=== PATIENT | male | born 1955 | race Caucasian/White ===

== ENCOUNTER 2021-07-20 10:00 | Outpatient (RCR) | payer MEDICARE, SELFPAY ==
[2021-07-10 09:10] VITALS: TEMP 36.2; BMI 34.5
--- NOTE | 2021-07-10 12:38 | HP.PCM_ITS ---
History of Present Illness Date of Service: 07/10/21 Chief Complaint: Right fifth toe ulcer History of Wound: Nathan is a pleasant 66-year-old male who presents to the wound healing center today (07/10/2021) for an initial evaluation of a right fifth toe ulcer. He reports a past medical history significant for insulin- dependent type 2 diabetes mellitus, diabetic polyneuropathy of the bilateral feet, hyperlipidemia, and tobacco use (chewing tobacco; non-smoker). He states that approximately 2.5 weeks ago he was walking in a new pair of shoes; he later developed a blister of the right fifth toe. He was applying triple antibiotic ointment to the area for a few days before he was seen by his primary care provider. At the time of his evaluation with his primary care provider, he reports redness and swelling of the right foot that extended to the ankle. His primary care provider placed him on Augmentin 875 mg / 125 mg 3 times daily x20 days and doxycycline 100 mg twice daily x20 days. He was also given mupirocin ointment to use to the right fifth toe ulcer daily and instruct ed to wrap the toe with gauze. He has since had a significant reduction in the redness and swelling of his right foot. He was later seen by his general internist and physician leader (Dr. Israel in [place], [place]). His right fifth toe ulcer was debrided. No changes were made to his wound care regimen. A culture was collected by his general internist and physician leader, and no changes to antibiotics have been made. An x-ray and lab work were also completed. He reports that years ago (around 2009?2011) he was told that he had shattered several bones in his right foot. No surgery was required, and he states this was managed with wrapping/bracing the right foot. He states that his right foot typically swells more easily than his left, but only with prolonged activity/standing. The patient denies fever, chills, general malaise, or poor appetite. The patient has not had increased redness, swelling, or purulent/malodorous drainage from affected area. [facility] Medical History (Updated 07/10/21 @ 13:01 by Opal Starr NP, LABELING SPECIALIST-C) Diabetic polyneuropathy Diabetic ulcer of right fifth toe Foot fracture, right Tobacco use Type 2 diabetes mellitus Home Medications insulin lispro [Humalog KwikPen Insulin] 15 unit SUBCUT TID 07/10/21 [History Last Taken Unknown] losartan 25 mg PO DAILY 07/10/21 [History Last Taken Unknown] metformin 1,000 mg PO BID 07/10/21 [History Last Taken Unknown] rosuvastatin 10 mg PO DAILY 07/10/21 [History Last Taken Unknown] Allergy/AdvReac Type Severity Reaction Status Date / Time acetaminophen [From NyQuil] Allergy Mild Hives Verified 07/10/21 09:39 dextromethorphan Allergy Mild Hives Verified 07/10/21 09:39 [From NyQuil] doxylamine [From NyQuil] Allergy Mild Hives Verified 07/10/21 09:39 pseudoephedrine [From NyQuil] Allergy Mild Hives Verified 07/10/21 09:39 Social History Smoking Status: Never smoker ROS Constitutional Constitutional: Denies chills, fever(s) or night sweats Eyes Eyes: Denies change in vision or double vision ENT HEENT: Denies lip swelling or tongue swelling Cardiovascular Cardiovascular: Denies chest pain, leg edema or palpitations Respiratory/Chest Respiratory/Chest: Denies cough, shortness of breath at rest, shortness of breath with exertion or wheezing Gastrointestinal Gastrointestinal: Denies diarrhea, nausea or vomiting Genitourinary Genitourinary: Denies dysuria or hematuria Musculoskeletal Musculoskeletal: Reports numbness and tingling; Denies abnormal gait, extremity pain or muscle weakness Integumentary Integumentary: Reports wounds; Denies rash Neurologic Neurologic: Reports sensory deficit; Denies abnormal gait, abnormal speech or focal weakness Endocrine Endocrinology: Denies cold intolerance, heat intolerance, polydipsia or polyuria Hematologic/Lymphatic Hematologic/Lymphatic: Denies easy bleeding or easy bruising Vital Signs Vital Signs Vital Signs: 07/10/21 09:10 Temperature 97.2 F L Temperature Source Temporal Weight Weight: 227 lb 7.189 oz Body Mass Index (BMI) 34.5 Physical Exam Const alert, no apparent distress and healthy appearing General Appearance: cooperative, comfortable and well kempt Nutritional Appearance: obese HEENT Head and Scalp: normocephalic and atraumatic Eyes EOMs intact bilaterally Neck supple and no JVD Resp normal respiratory effort, normal air movement and no use of accessory muscles Auscultation: clear to auscultation bilaterally; Negative for crackles, rales, rhonchi or wheezes Cardio regular rate and regular rhythm GI normal to inspection, nondistended, normoactive bowel sounds Extremity normal capillary refill, no joint enlargement, no clubbing, cyanosis or edema and no calf tenderness General Extremity: edema right lower extremity (foot) mild Peripheral Pulses: Yes dorsalis pedis pulses present bilateral 2+ Skin Wounds: wounds noted No malodorous Wound Narrative: Ulcer of right fifth toe with subcutaneous layer and muscle exposed. Probes to bone. Tunneling present. Moderate to large amount of slough and devitalized tissue present. No purulent/malodorous drainage noted. Mild erythema of the right great toe, which does not extend to the dorsal foot. Swelling of right great toe also noted, as well as mild edema of right foot. The right fifth toe is not warm to palpation. Nontender to palpation, though the patient has decreased sensation due to polyneuropathy. Neuro moves all extremities and no focal motor deficits Sensory Exam: other Decreased sensation in the bilateral feet Motor Exam: no movement abnormalities noted Psych mental status grossly normal, cooperative and affect normal Debridement Note Debridement Note Post-Debridement Measurements and Additional Note: Post-Debridement Measurements/Treatment - Nurse 1 - General Ulcer Assessment Start: 07/10/21 09:09 Freq: Status: Active Protocol: YOGI Activity Type Activity Date Activity User E-Sign Co-Sign Detail Recorded Client Recorded Date Recorded By Document 07/10/21 09:10 MEAGAN [id number] 07/10/21 09:34 MEAGAN 07/10/21 09:10 - Today's Visit Information Type of service Initial Visit Arrival Mode Ambulatory Patient Identification Verified (Name & Yes ) Height and Weight Height 5 ft 8 in Weight 227 lb 7.189 oz Weight in Pounds 227.4 lbs Body Mass Index (BMI) 34.5 BMI Classification Obese BSA - Katelynn 2.16 Vital Signs Temperature (97.8 F-99.1 F) 97.2 F L Temperature Source Temporal History Since Last Visit- (Skip if this is Patient's initial visit) Have you changed medications since your No last visit? Left Footwear Regular Shoe Right Footwear Regular Shoe Lower Extremity Assessment/ Foot Assessment/ Toe Nail Assessment Right -Claudication Assessment N/A due to Amputation -Polpliteal Pulses Palpable Yes -Popliteal Doppler Monophasic -Dorsalis Pedis Doppler Monophasic -Extremity Color Normal -Hair Growth on Legs Yes -Hair Growth on Toes Yes -Temperature of Extremity Warm -Capillary Refill Less than 3 Seconds -Dependent Rubor Yes -Blanched when Elevated Yes Communication Assessment Preferred language Bangladeshi Sales Hunter Required No Able to Read Yes Able to Write Yes Communication Tools None Right Hearing Abillity Normal Visual Assistive Devices Glasses Teaching Assessment Preferences Verbal,Written Willingness to Engage in Self Management High Activies Readiness to Engage in Self Management High Activities Anxiety Level Calm Cooperation Cooperative Perception Coherent Interest in Health Problem Asks Questions Does Patient Smoke tobacco or other Yes substances Smoking Status Never smoker Culture/Mormonism/Emr Implementation Specialist Cultural/Mormonism Needs that may affect No Treatment Plan Would you allow our hospital machine cleaner to No meet you for the purpose of spiritual/ emotional support? Emr Implementation Specialist to contact place of mosque No WC - Nurse 1 - General Ulcer Measurement Start: 07/10/21 09:09 Freq: Status: Active Protocol: Activity Type Activity Date Activity User E-Sign Co-Sign Detail Recorded Client Recorded Date Recorded By Document 07/10/21 09:10 MN [id number] 07/10/21 09:34 MEAGAN 07/10/21 09:10 Wound Center Nurse 1 #1 R 5th toe -Current Size (cm) - Length 1.6 -Current Size (cm) - Width 1.7 -Current Size (cm) - Depth 0.2 -Total Square Cm 2.72 -Date of Last Picture (Recall this 07/10/21 field) -Photo Taken Yes -Exudate Amt Medium -Exudate Type Serosanguineous -Wound Margin Distinct, Outline Attached -Necrosis Amt Medium (34-66%) -Necrotic Tissue Type Adherent Slough -Texture (Luzmaria-wound Skin Appearance) Assessed,Callus -Moisture (Luzmaria-wound Skin Appearance) No Abnormality, Assessed -Color (Luzmaria-wound Skin Appearance) No Abnormality, Assessed -Temperature (Luzmaria-wound Skin No Abnormality Appearance) (Pt Warm) -Tenderness on Palpation (Luzmaria-wound Yes Skin Appearance) -Ulcer Cleansing Rinsed/ Irrigated with Saline -Anesthetic Used 4% Lidocaine Solution Right Calf (cm) 40.5 Right Ankle (cm) 25 MARIYA - Nurse 3 - General Ulcer D/C NN Start: 07/10/21 09:09 Freq: Status: Active Protocol: Activity Type Activity Date Activity User E-Sign Co-Sign Detail Recorded Client Recorded Date Recorded By Document 07/10/21 10:46 MEAGAN [id number] 07/10/21 10:47 MEAGAN 07/10/21 10:46 Wound Care Nurse 3 #1 R 5th toe -Ulcer Cleansing Rinsed/ Irrigated with Saline -Primary Dressing Applied C Hydrogel ($) -Primary Dressing Covered/Secured with Dry Gauze, Secured with Tape Right -Lotion applied to leg before No compression wrap -Tubular Bandage Double Layer -Size of Tubigrip Used Size D -Size D ($) 2 WC - Visit Discharge Discharge Condition Stable Ambulatory Status Ambulatory Transportation Private Auto Accompanied by Medication Reconcilliation completed & No provided to patient/care provider Clinical Summary of Care Provided Yes Wound debrided: Right fifth toe ulcer Laterality: Right Wound Grade/Stage: Rizvi 2 Type of Debridement: Excisional debridement Anesthesia Used: 5% Lidocaine Gel Depth: Down to and including healthy tissue, in the subcutaneous layer, to muscle and to bone Percentage of wound debrided: 100 Instrument Used: 5mm curette Tissue Removed: Slough and devitalized tissue Severity: Necrosis of Muscle Amount of bleeding with debridement: Mild Bleeding Controlled with: Pressure Patient tolerated procedure: Patient tolerated procedure well Charges/Coding Visit Charges Office Visits / Consults: [id number] OV L4 New Procedures Integumentary [id number]: [id number] Odalys musc/fascia 20 sq cm/< Assessment/Plan Assessment/Plan (1) Diabetic ulcer of right fifth toe: CODE(S): E11.621 - Type 2 diabetes mellitus with foot ulcer; L97.519 - Non-pressure chronic ulcer of other part of right foot with unspecified severity (2) Type 2 diabetes mellitus: CODE(S): E11.9 - Type 2 diabetes mellitus without complications QUALIFIERS: Diabetes mellitus superintendent marine oil terminal insulin use: with superintendent marine oil terminal use Diabetes mellitus complication status: with skin complications Diabetes mellitus complication detail: with foot ulcer Qualified Code(s): E11.621 - Type 2 diabetes mellitus with foot ulcer; L97.509 - Non-pressure chronic ulcer of other part of unspecified foot with unspecified severity; Z79.4 - FPC (current) use of insulin (3) Diabetic polyneuropathy: CODE(S): E11.42 - Type 2 diabetes mellitus with diabetic polyneuropathy QUALIFIERS: Diabetes mellitus type: type 2 Qualified Code(s): E11.42 - Type 2 diabetes mellitus with diabetic polyneuropathy (4) Hyperlipidemia: CODE(S): E78.5 - Hyperlipidemia, unspecified QUALIFIERS: Hyperlipidemia type: unspecified Qualified Code(s): E78.5 - Hyperlipidemia, unspecified (5) Tobacco use: CODE(S): Z72.0 - Tobacco use PLAN: Debridement performed today in clinic as annotated above. Aquacel Ag applied. Prescription for Santyl called to patient's pharmacy by disease case manager, Juan Agrawal RN. At home wound-care instructions: Begin Santyl dressing changes daily, applying a nickel thick layer to the ulcer of the right fifth toe. Change dressing once daily or more frequently as needed due to contamination. Wash wounds daily with antibacterial soap and water, rinse and dry thoroughly before each dressing change. Compression: Double Tubigrip's applied for compression to right lower extremity. Patient was instructed to wear these daily. May remove at bedtime. Reapply compression prior to getting out of bed in the morning. Off-loading: The patient was instructed to avoid pressure and friction on the affected areas. He has shoes with a cut out along the lateral edge to avoid pressure on the right fifth toe. Avoid prolonged standing and/or dangling of legs. When seated, feet should be elevated at chest level. Frequent ambulation is encouraged. When driving, perform walking breaks at least every 30 minutes. Diet: Patient encouraged to increase protein intake while taking caution to avoi d high carbohydrate and/or sugar intake. Tobacco: The risks of tobacco use and benefits of cessation were discussed with the patient today. The patient is encouraged to quit using tobacco. If cessation aids are desired, the patient should contact their primary care provider to discuss appropriate options. Labs/cultures/imaging: Cultures ordered and collected today. In the meantime, continue antibiotics as prescribed. If additional/new antibiotics are required based on culture results, patient will be contacted. Venous and arterial studies ordered today. X-ray results and lab results will be requested for review. An MRI may be considered based on clinical evaluation next week. Follow-up: Return to clinic in 1 week for re-evaluation. Return sooner or report to the emergency room should symptoms worsen, or new symptoms arise. Note: [employer] speech recognition electrical systems drafter software was used to create portions of this document. Sound-alike and misspelled words, as well as other tr anscription errors may be contained in the documentation.
[2021-07-17 08:46] VITALS: BP 113/74; PULSE 77; TEMP 36.2; BMI 34.5
--- NOTE | 2021-07-17 12:23 | PN.PCM_ITS ---
History of Present Illness Date of Service: 07/17/21 Chief Complaint: Right fifth toe ulcer History of Wound: Nathan is a pleasant 66-year-old male who presents to the wound healing center today (07/10/2021) for an initial evaluation of a right fifth toe ulcer. He reports a past medical history significant for insulin- dependent type 2 diabetes mellitus, diabetic polyneuropathy of the bilateral feet, hyperlipidemia, and tobacco use (chewing tobacco; non-smoker). He states that approximately 2.5 weeks ago he was walking in a new pair of shoes; he later developed a blister of the right fifth toe. He was applying triple antibiotic ointment to the area for a few days before he was seen by his primary care provider. At the time of his evaluation with his primary care provider, he reports redness and swelling of the right foot that extended to the ankle. His primary care provider placed him on Augmentin 875 mg / 125 mg 3 times daily x20 days and doxycycline 100 mg twice daily x20 days. He was also given mupirocin ointment to use to the right fifth toe ulcer daily and instruct ed to wrap the toe with gauze. He has since had a significant reduction in the redness and swelling of his right foot. He was later seen by his emergency management system director (Dr. Israel in [place], [place]). His right fifth toe ulcer was debrided. No changes were made to his wound care regimen. A culture was collected by his emergency management system director, and no changes to antibiotics have been made. An x-ray and lab work were also completed. He reports that years ago (around 2009?2011) he was told that he had shattered several bones in his right foot. No surgery was required, and he states this was managed with wrapping/bracing the right foot. He states that his right foot typically swells more easily than his left, but only with prolonged activity/standing. The patient denies fever, chills, general malaise, or poor appetite. The patient has not had increased redness, swelling, or purulent/malodorous drainage from affected area. Progress of Wound: The patient has been compliant with the use of Santyl over the past week. He feels his right fifth toe ulcer has improved. The patient denies fever, chills, general malaise, or poor appetite. The patient has not had increased redness, swelling, or purulent/malodorous drainage from affected area. He has finished his course of Augmentin, but is still finishing his course of doxycycline. His labs from Dr. Israel on 06/25/2021 were reviewed, as follows: CBCD: WBC 12.2 (H), hemoglobin 12.9 (L), hematocrit 39.0 (L) CRP: 9.10 Wound culture: Positive for group B Streptococcus His right foot x-ray was also reviewed which demonstrated remote trauma and superimposed diabetic/Charcot foot. No noted soft tissue swelling or concern for osteomyelitis. His wound culture from 07/10/2021 was positive for 2+ corynebacterium minutiss imum, suspected skin contaminant. Objective Data Objective Data Vital Signs: Vital Signs Temp Pulse BP 97.1 F L 77 113/74 07/17/21 08:46 07/17/21 08:46 07/17/21 08:46 Weight: 227 lb 7.189 oz Body Mass Index (BMI) 34.5 Lab / Micro Data Micro: Microbiology 07/10/21 10:10 Ulcer, Decubitus - Right Foot Gram Stain - Final 07/10/21 10:10 Ulcer, Decubitus - Right Foot Wound Culture - Final Corynebacterium minutissimum 07/10/21 10:10 Ulcer, Decubitus - Right Foot Anaerobic Culture - Final No anaerobic bacteria isolated. Charges/Coding Procedures Integumentary [id number]: [id number] Odalys musc/fascia 20 sq cm/< Physical Exam Const alert, no apparent distress and healthy appearing General Appearance: cooperative, comfortable and well kempt Nutritional Appearance: obese HEENT Head and Scalp: normocephalic and atraumatic Eyes EOMs intact bilaterally Neck supple Resp normal respiratory effort Extremity normal capillary refill and no joint enlargement General Extremity: edema right lower extremity (foot) mild Peripheral Pulses: Yes dorsalis pedis pulses present bilateral 2+ Skin Wounds: wounds noted No malodorous Wound Narrative: Ulcer of right fifth toe with subcutaneous layer and muscle exposed. Questionable probing to bone this week. Tunneling present. Moderate amount of slough and devitalized tissue present. No purulent/malodorous drainage noted. Mild erythema of the right 5th toe, which does not extend to the dorsal foot. Swelling of right 5th toe also noted, as well as mild edema of right foot. The right fifth toe is not warm to palpation. Nontender to palpation, though the patient has decreased sensation due to polyneuropathy. Neuro moves all extremities and no focal motor deficits Sensory Exam: other Decreased sensation in the bilateral feet Motor Exam: no movement abnormalities noted Psych mental status grossly normal, cooperative and affect normal Debridement Note Debridement Note Post-Debridement Measurements and Additional Note: Post-Debridement Measurements/Treatment WC - Nurse 1 - General Ulcer Assessment Start: 07/10/21 09:09 Freq: Status: Active Protocol: [email or web address] Activity Type Activity Date Activity User E-Sign Co-Sign Detail Recorded Client Recorded Date Recorded By Document 07/10/21 09:10 MD [id number] 07/10/21 09:34 AK Document 07/17/21 08:46 AK Desktop 07/17/21 08:47 AK 07/10/21 07/17/21 09:10 08:46 - Today's Visit Information Type of service Initial Visit Follow-up Visit (Physician/HAIR BLENDER ) Arrival Mode Ambulatory Ambulatory Patient Identification Verified (Name & Yes Yes ) Height and Weight Height 5 ft 8 in Weight 227 lb 7.189 oz Weight in Pounds 227.4 lbs Body Mass Index (BMI) 34.5 34.5 BMI Classification Obese Obese BSA - Katelynn 2.16 Vital Signs Temperature (97.8 F-99.1 F) 97.2 F L 97.1 F L Temperature Source Temporal Temporal Pulse Rate (60-100) 77 Pulse Location Monitor Blood Pressure (90/60-120/80) 113/74 Blood Pressure Mean (mm Hg) 87 Source Monitor Position Semi-Fowlers Blood Pressure Location Left Arm History Since Last Visit- (Skip if this is Patient's initial visit) Have you changed medications since your No No last visit? Any new allergies or adverse reactions No Had a fall/change in ADL's that may No increase risk of falls Have you been in the hospital since your No last visit? Has dressing in place as prescribed Yes Has compression in place as prescribed Yes Has offloadiing in place as prescribed N/A Experienced any changes in pain level or No management Left Footwear Regular Shoe Regular Shoe Right Footwear Regular Shoe Regular Shoe Pain Scale: 0-10 Numeric Is Patient Pain Free? Yes Lower Extremity Assessment/ Foot Assessment/ Toe Nail Assessment Right -Claudication Assessment N/A due to Amputation -Polpliteal Pulses Palpable Yes -Popliteal Doppler Monophasic -Dorsalis Pedis Doppler Monophasic -Extremity Color Normal -Hair Growth on Legs Yes -Hair Growth on Toes Yes -Temperature of Extremity Warm -Capillary Refill Less than 3 Seconds -Dependent Rubor Yes -Blanched when Elevated Yes Communication Assessment Preferred language [place] Slat Basket Maker Machine Required No Able to Read Yes Able to Write Yes Communication Tools None Right Hearing Abillity Normal Visual Assistive Devices Glasses Teaching Assessment Preferences Verbal,Written Willingness to Engage in Self Management High Activies Readiness to Engage in Self Management High Activities Anxiety Level Calm Cooperation Cooperative Perception Coherent Interest in Health Problem Asks Questions Does Patient Smoke tobacco or other Yes substances Smoking Status Never smoker Culture/Rastafarian/Structural Worker Cultural/Rastafarian Needs that may affect No Treatment Plan Would you allow our hospital general distillery worker to No meet you for the purpose of spiritual/ emotional support? Structural Worker to contact place of amish No WC - Nurse 1 - General Ulcer Measurement Start: 07/10/21 09:09 Freq: Status: Active Protocol: Activity Type Activity Date Activity User E-Sign Co-Sign Detail Recorded Client Recorded Date Recorded By Document 07/10/21 09:10 AK [id number] 07/10/21 09:34 AK Document 07/17/21 08:46 AK Desktop 07/17/21 08:47 AK 07/10/21 07/17/21 09:10 08:46 Wound Center Nurse 1 #1 R 5th toe -Current Size (cm) - Length 1.6 1 -Current Size (cm) - Width 1.7 1.5 -Current Size (cm) - Depth 0.2 0.3 -Total Square Cm 2.72 1.5 -Date of Last Picture (Recall this 07/10/21 field) -Photo Taken Yes -Exudate Amt Medium Small -Exudate Type Serosanguineous Serosanguineous -Wound Margin Distinct, Distinct, Outline Outline Attached Attached -Slough/Fibrin Yes -Necrosis Amt Medium (34-66%) Large (67-100%) -Necrotic Tissue Type Adherent Slough Adherent Slough -Texture (Luzmaria-wound Skin Appearance) Assessed,Callus Assessed,Callus ,Scarring -Moisture (Luzmaria-wound Skin Appearance) No Abnormality, No Abnormality, Assessed Assessed -Color (Luzmaria-wound Skin Appearance) No Abnormality, No Abnormality, Assessed Assessed -Temperature (Luzmaria-wound Skin No Abnormality No Abnormality Appearance) (Pt Warm) (Pt Warm) -Tenderness on Palpation (Luzmaria-wound Yes No Skin Appearance) -Ulcer Cleansing Rinsed/ Rinsed/ Irrigated with Irrigated with Saline Saline -Foul Odor after Cleansing No -Anesthetic Used 4% Lidocaine 5% Lidocaine Solution Gel Right Calf (cm) 40.5 Right Ankle (cm) 25 WC - Nurse 2 - General Ulcer CM Notes Start: 07/10/21 09:09 Freq: Status: Active Protocol: Activity Type Activity Date Activity User E-Sign Co-Sign Detail Recorded Client Recorded Date Recorded By Document 07/10/21 13:21 PL [id number] 07/10/21 13:23 PL Document 07/17/21 12:20 PL [id number] 07/17/21 12:21 PL 07/10/21 07/17/21 13:21 12:20 Wound Center Nurse 2 -Time 09:50 09:18 -Correct Patient Yes Yes -Correct Side, Site, Position Yes Yes -Correct Procedure Yes Yes -Procedure Performed Yes Yes -Type of Procedure Debridement Debridement -Clinical Debridement Muscle / Fascia Subcutaneous -Tissue Removed Muscle Subcutaneous -Post Debridement (cm) - Length 1.6 1.3 -Post Debridement (cm) - Width 1.6 1.5 -Post Debridement (cm) - Depth 0.1 0.1 -Total Square (Post) (cm) 2.56 1.95 -Area of Debridement (cm) - Length 1.6 1.3 -Area of Debridement (cm) - Width 1.6 1.5 -Total Square (Area) (cm) 2.56 1.95 -Tunneling No No -Undermining/Tunneling No No -Circular Undermining No No -Wound/Ulcer Outcome Healed- Healed- Surgical Surgical Closure Closure -Foul Odor after Cleansing No No -Bioengineered Tissue No No -Bleeding Controlled with Pressure Pressure -Treatment Response Procedure Procedure Tolerated Well Tolerated Well -Debridement - Subq, 1st 20sq cm Yes -Debridement - Muscle / Fascia, 1st Yes 20sq cm WC - Nurse 3 - General Ulcer D/C NN Start: 07/10/21 09:09 Freq: Status: Active Protocol: Activity Type Activity Date Activity User E-Sign Co-Sign Detail Recorded Client Recorded Date Recorded By Document 07/10/21 10:46 AK [id number] 07/10/21 10:47 AK Document 07/17/21 09:44 KR Desktop 07/17/21 09:44 KR 07/10/21 07/17/21 10:46 09:44 Wound Care Nurse 3 #1 R 5th toe -Ulcer Cleansing Rinsed/ Irrigated with Saline -Primary Dressing Applied C Hydrogel ($) C Hydrogel ($) -Primary Dressing Covered/Secured with Dry Gauze, Dry Gauze, Secured with Secured with Tape Tape Right -Lotion applied to leg before No compression wrap -Tubular Bandage Double Layer -Size of Tubigrip Used Size D -Size D ($) 2 Pain Scale: 0-10 Numeric Is Patient Pain Free? Yes WC - Visit Discharge Discharge Condition Stable Stable Ambulatory Status Ambulatory Ambulatory Transportation Private Auto Private Auto Accompanied by Medication Reconcilliation completed & No provided to patient/care provider Clinical Summary of Care Provided Yes Wound debrided: Right fifth toe ulcer Laterality: Right Wound Grade/Stage: Rizvi 2 Type of Debridement: Excisional debridement Anesthesia Used: 5% Lidocaine Gel Depth: Down to and including healthy tissue, in the subcutaneous layer, to muscle and - (Questionable probing to bone, no bone visualized today) Percentage of wound debrided: 100 Instrument Used: 5mm curette Tissue Removed: Slough and devitalized tissue Severity: Fat Layer Exposed Amount of bleeding with debridement: Mild Bleeding Controlled with: Pressure Patient tolerated procedure: Patient tolerated procedure well Assessment/Plan Assessment/Plan (1) Diabetic ulcer of right fifth toe: CODE(S): E11.621 - Type 2 diabetes mellitus with foot ulcer; L97.519 - Non-pressure chronic ulcer of other part of right foot with unspecified severity (2) Type 2 diabetes mellitus: CODE(S): E11.9 - Type 2 diabetes mellitus without complications QUALIFIERS: Diabetes mellitus terminal operator insulin use: with mcfp use Diabetes mellitus complication status: with skin complications Diabetes mellitus complication detail: with foot ulcer Qualified Code(s): E11.621 - Type 2 diabetes mellitus with foot ulcer; L97.509 - Non-pressure chronic ulcer of other part of unspecified foot with unspecified severity; Z79.4 - terminal clerk (current) use of insulin (3) Diabetic polyneuropathy: CODE(S): E11.42 - Type 2 diabetes mellitus with diabetic polyneuropathy QUALIFIERS: Diabetes mellitus type: type 2 Qualified Code(s): E11.42 - Type 2 diabetes mellitus with diabetic polyneuropathy (4) Hyperlipidemia: CODE(S): E78.5 - Hyperlipidemia, unspecified QUALIFIERS: Hyperlipidemia type: unspecified Qualified Code(s): E78.5 - Hyperlipidemia, unspecified (5) Tobacco use: CODE(S): Z72.0 - Tobacco use PLAN: Debridement performed today in clinic as annotated above. Aquacel Ag applied. Given the duration of the wound and failure of the wound to respond to standard wound care, we will apply for advanced skin substitutes (Puraply, Nushield, Apligraf . At home wound-care instructions: Continue Santyl dressing changes daily, applying a nickel thick layer to the ulcer of the right fifth toe. Change dressing once daily or more frequently as needed due to contamination. Wash wounds daily with antibacterial soap and water, rinse and dry thoroughly before each dressing change. Do not soak/submerge the wound in a tub/pool of water. Compression: Double Tubigrip's applied for compression to right lower extremity. Patient was instructed to wear these daily. May remove at bedtime. Reapply compression prior to getting out of bed in the morning. Off-loading: The patient was instructed to avoid pressure and friction on the affected areas. He has shoes with a cut out along the lateral edge to avoid pressure on the right fifth toe. Avoid prolonged standing and/or dangling of legs. When seated, feet should be elevated at chest level. When driving, perform walking breaks at least every 30 minutes. Diet: Patient encouraged to increase protein intake while taking caution to avoid high carbohydrate and/or sugar intake. Tobacco: The risks of tobacco use and benefits of cessation were discussed with the patient today. The patient is encouraged to quit using tobacco. If cessation aids are desired, the patient should contact their primary care provider to discuss appropriate options. Labs/cultures/imaging: He has finished his course of Augmentin, but is still finishing his course of doxycycline. His labs from Dr. Israel on 06/25/2021 were reviewed, as follows: CBCD: WBC 12.2 (H), hemoglobin 12.9 (L), hematocrit 39.0 (L) CRP: 9.10 Wound culture: Positive for group B Streptococcus His right foot x-ray was also reviewed which demonstrated remote trauma and superimposed diabetic/Charcot foot. No noted soft tissue swelling or concern for osteomyelitis. His wound culture from 07/10/2021 was positive for 2+ corynebacterium minutissimum, suspected skin contaminant. No clinical concerns for infection today. Following completion of his course of doxycycline, it would be reasonable to repeat lab work to follow-up on slightly elevated white blood cell count and elevated CRP. An MRI may be considered based on wound progress. Follow-up: Return to clinic in 1 week for re-evaluation. Return sooner or report to the emergency room should symptoms worsen, or new symptoms arise. Note: [email or web address] speech recognition electrical controls technician software was used to create portions of this document. Sound-alike and misspelled words, as well as other electrical controls technician errors may be contained in the documentation.
--- NOTE | 2021-07-20 09:58 | VDLE_ITS ---
Reason For Study: NONHEALING WOUND RIGHT LEFT CFV is compressible, spontaneous, phasic, CFV is compressible, spontaneous, phasic, competent and demonstrates normal competent, and demonstrates normal augmentation. augmentation. FV is compressible, spontaneous, phasic, FV is compressible, spontaneous, phasic, competent and demonstrates normal competent and demonstrates normal augmentation. augmentation. POP V is compressible, spontaneous, phasic, POP V is compressible, spontaneous, phasic, competent and demonstrates normal competent and demonstrates normal augmentation. augmentation. T/P Trunk is compressible. T/P Trunk is compressible. PTV is compressible. PTV is compressible. RT PerV is compressible. LT PerV is compressible. SFJ is competent and measures .74 X .73 cm. LEFT GSV study is labeled RT on images. GSV above knee is INCOMPETENT for greater SFJ is competent and measures .8 X .93 cm. than 0.5 seconds. GSV above knee is INCOMPETENT for greater GSV at knee measures .48 X .51 cm. than 0.5 seconds. GSV below knee is competent. GSV at knee measures .49 X .48 cm. SSV at junction is competent and measures .33 GSV below knee is INCOMPETENT for greater X .34 cm. than 0.5 seconds. Procedure SSV at junction is competent and measures .10 This is a venous duplex using B-mode, color X .12 cm. flow and spectral Doppler. Exam performed in department. A preliminary report was called and/or faxed to [facility]. VL/Venous Duplex US - Fco Extrem Interpretation Summary Deep veins of the lower extremities are bilaterally patent and compressible seg mentally. There is no evidence of deep vein thrombosis on either side. Valvular competence appears in tact within the proximal deep venous systems bilaterally. The great saphenous veins appear bila terally patent and compressible segmentally. Sapheno-femoral junctions are bilaterally competent . The right great saphenous vein appears incompetent above the knee. The right great saphenous ve in appears competent below the knee. The left great saphenous vein appears segmentally incompetent. Small saphenous veins are patent and competent bilaterally. Ordering Physician: Opal Starr Referring Physician: DIXIE LUIS Performed By: Viviana Perez, PRINCE, RVT
--- NOTE | 2021-07-20 09:59 | ART_ITS ---
Reason For Study: NONHEALING ULCER Procedure A bilateral lower extremity continuous wave Doppler with analog waveform analysis,segmental pressures,and ankle brachial indexes without exercise. Left Segmental Pressures Left brachial= 141mmHg. Left posterior tibial artery = 167mmHg. Left dorsalis pedis artery = 177mmHg. Left digit = 138 mmHg. The left dorsalis pedis waveforms are triphasic. The left posterior tibial artery waveforms are triphasic. Right Segmental Pressures Right brachial= 147mmHg. Right posterior tibial artery = 178mmHg. Right dorsalis pedis artery = 183mmHg. Right digit = 171 mmHg. The right dorsalis pedis waveforms are triphasic. The right posterior tibial artery waveforms are triphasic. Indices The right ankle brachial index by the dorsalis pedis is 1.24. The right ankle brachial index by the posterior tibial artery is 1.21. The right digital-brachial index is 1.16. The left resting ankle brachial index is 1.20. The left ankle brachial index by the posterior tibial artery is 1.14. The left digital-brachial index is .94. VL/Lower Ext Art Exam w/o Exercis Interpretation Summary Triphasic Doppler waveforms are noted at ankle level bilaterally. Pulse-volume recordings appear satisfactory at all levels bilaterally, including low thigh, calf, ankle, and d igital levels. Resting ankle-brachial indices are normal bilaterally. Digital-brachial indices are normal bilaterally. There is no evidence of significant arterial occlusive disease in the lower ext remities bilaterally. Ordering Physician: Opal Starr Referring Physician: DIXIE LUIS Performed By: Viviana Perez, PRINCE, RVT
== END 2021-07-21 23:59 | disposition home or self-care (01) ==
LOC: WC 10:00
PROVIDERS: PCP Internal Medicine Infectious Disease; Referring Provider Nurse Practitioner Family; Visit Provider Nurse Practitioner Family
DX: E11.621 Type 2 diabetes mellitus with foot ulcer (principal); L97.513 Non-pressure chronic ulcer of other part of right foot with necrosis of muscle; S90.424S Blister (nonthermal), right lesser toe(s), sequela; X58.XXXS Exposure to other specified factors, sequela; E11.42 Type 2 diabetes mellitus with diabetic polyneuropathy; R60.0 Localized edema; E78.5 Hyperlipidemia, unspecified; E66.9 Obesity, unspecified; Z68.34 Body mass index [BMI] 34.0-34.9, adult; Z72.0 Tobacco use; Z79.4 Long term (current) use of insulin; Z79.899 Other long term (current) drug therapy
CPT/HCPCS: 11042; 11043; 87070; 87075; 87077; 87205; 93923; 93970; 99213; G0463

== ENCOUNTER 2021-07-28 14:00 | Outpatient (RCR) | payer MEDICARE, SELFPAY ==
[2021-07-22 00:43] VITALS: BP 113/74; PULSE 77; TEMP 36.2; BMI 34.5
[2021-07-23 15:37] VITALS: BP 175/83; PULSE 75; TEMP 36.1; BMI 34.5
--- NOTE | 2021-07-23 21:55 | PN.PCM_ITS ---
History of Present Illness Date of Service: 07/23/21 Chief Complaint: Right fifth toe ulcer History of Wound: Nathan is a pleasant 66-year-old male who presents to the wound healing center today (07/10/2021) for an initial evaluation of a right fifth toe ulcer. He reports a past medical history significant for insulin- dependent type 2 diabetes mellitus, diabetic polyneuropathy of the bilateral feet, hyperlipidemia, and tobacco use (chewing tobacco; non-smoker). He states that approximately 2.5 weeks ago he was walking in a new pair of shoes; he later developed a blister of the right fifth toe. He was applying triple antibiotic ointment to the area for a few days before he was seen by his primary care provider. At the time of his evaluation with his primary care provider, he reports redness and swelling of the right foot that extended to the ankle. His primary care provider placed him on Augmentin 875 mg / 125 mg 3 times daily x20 days and doxycycline 100 mg twice daily x20 days. He was also given mupirocin ointment to use to the right fifth toe ulcer daily and instruct ed to wrap the toe with gauze. He has since had a significant reduction in the redness and swelling of his right foot. He was later seen by his defensive line coach (Dr. Israel in [place], [place]). His right fifth toe ulcer was debrided. No changes were made to his wound care regimen. A culture was collected by his defensive line coach, and no changes to antibiotics have been made. An x-ray and lab work were also completed. He reports that years ago (around 2009?2011) he was told that he had shattered several bones in his right foot. No surgery was required, and he states this was managed with wrapping/bracing the right foot. He states that his right foot typically swells more easily than his left, but only with prolonged activity/standing. The patient denies fever, chills, general malaise, or poor appetite. The patient has not had increased redness, swelling, or purulent/malodorous drainage from affected area. Progress of Wound: Doing well with santyl, no new concerns. Courtesy visit for Opal HARRINGTON Objective Data Objective Data Vital Signs: Vital Signs Temp Pulse BP 96.9 F L 75 175/83 H 07/23/21 15:37 07/23/21 15:37 07/23/21 15:37 Weight: 227 lb 7.189 oz Body Mass Index (BMI) 34.5 Charges/Coding Procedures Integumentary [id number]: [id number] Odalys subq tissue 20 sq cm/< Physical Exam Const alert, no apparent distress and healthy appearing General Appearance: cooperative, comfortable and well kempt Nutritional Appearance: obese HEENT Head and Scalp: normocephalic and atraumatic Eyes EOMs intact bilaterally Neck supple Resp normal respiratory effort Extremity normal capillary refill and no joint enlargement General Extremity: edema right lower extremity (foot) mild Peripheral Pulses: Yes dorsalis pedis pulses present bilateral 2+ Skin Wounds: wounds noted No malodorous Wound Narrative: Ulcer of right fifth toe with subcutaneous layer and muscle exposed. Tunneling present. Moderate amount of slough and devitalized tissue present. No purulent/malodorous drainage noted. Mild erythema of the right 5th toe, which does not extend to the dorsal foot. Swelling of right 5th toe also noted, as well as mild edema of right foot. The right fifth toe is not warm to palpation. Nontender to palpation, though the patient has decreased sensation due to polyneuropathy. Neuro moves all extremities and no focal motor deficits Sensory Exam: other Decreased sensation in the bilateral feet Motor Exam: no movement abnormalities noted Psych mental status grossly normal, cooperative and affect normal Debridement Note Debridement Note Wound debrided: right 5th toe ulcer Laterality: Right Type of Debridement: Excisional debridement Anesthesia Used: 4% Lidocaine Solution and 5% Lidocaine Gel Depth: in the subcutaneous layer and to muscle Percentage of wound debrided: 100 Instrument Used: 5mm curette Tissue Removed: slough and devitalized tissue Severity: Fat Layer Exposed Amount of bleeding with debridement: Mild Bleeding Controlled with: Pressure Patient tolerated procedure: Patient tolerated procedure well Post-Debridement Measurements and Additional Note: Post-Debridement Measurements/Treatment - Nurse 1 - General Ulcer Assessment Start: 07/23/21 15:37 Freq: Status: Active Protocol: YOGI Activity Type Activity Date Activity User E-Sign Co-Sign Detail Recorded Client Recorded Date Recorded By Document 07/23/21 15:37 MEAGAN [id number] 07/23/21 15:44 MEAGAN 07/23/21 15:37 - Today's Visit Information Type of service Follow-up Visit (Physician/PROTEIN CHEMIST ) Arrival Mode Ambulatory Patient Identification Verified (Name & No ) Patient Requires Transmission-Based No Precautions Safety Precautions NA Height and Weight Body Mass Index (BMI) 34.5 BMI Classification Obese Vital Signs Temperature (97.8 F-99.1 F) 96.9 F L Temperature Source Temporal Pulse Rate (60-100) 75 Pulse Location Monitor Blood Pressure (90/60-120/80) 175/83 H Blood Pressure Mean (mm Hg) 113 Source Monitor History Since Last Visit- (Skip if this is Patient's initial visit) Have you changed medications since your No last visit? Any new allergies or adverse reactions No Had a fall/change in ADL's that may No increase risk of falls Signs or symptoms of abuse and/or No neglect since last visit Have you been in the hospital since your No last visit? Has dressing in place as prescribed Yes Has compression in place as prescribed Yes Left Footwear Regular Shoe Right Footwear Regular Shoe WC - Nurse 1 - General Ulcer Measurement Start: 07/23/21 15:37 Freq: Status: Active Protocol: Activity Type Activity Date Activity User E-Sign Co-Sign Detail Recorded Client Recorded Date Recorded By Document 07/23/21 15:37 SD [id number] 07/23/21 15:44 MEAGAN 07/23/21 15:37 Wound Center Nurse 1 #1 R 5th toe -Combined with other wound No -Current Size (cm) - Length 1 -Current Size (cm) - Width 1.3 -Current Size (cm) - Depth 0.2 -Total Square Cm 1.3 -Photo Taken No -Tunneling No -Undermining/Tunneling No -Circular Undermining No -Exudate Amt Large -Exudate Type Serosanguineous -Wound Margin Distinct, Outline Attached -Granulation Amt Medium (34-66%) -Granulation Quality N/A -Slough/Fibrin Yes -Necrosis Amt Large (67-100%) -Necrotic Tissue Type Adherent Slough -Structure Exposed N/A -Texture (Luzmaria-wound Skin Appearance) No Abnormality, Assessed -Moisture (Luzmaria-wound Skin Appearance) Assessed, Maceration -Color (Luzmaria-wound Skin Appearance) No Abnormality, Assessed -Temperature (Luzmaria-wound Skin No Abnormality Appearance) (Pt Warm) -Tenderness on Palpation (Luzmaria-wound No Skin Appearance) -Ulcer Cleansing Rinsed/ Irrigated with Saline -Anesthetic Used 5% Lidocaine Gel Right Calf (cm) 40 Right Foot (cm) 25.5 - Nurse 2 - General Ulcer CM Notes Start: 07/23/21 15:37 Freq: Status: Active Protocol: Activity Type Activity Date Activity User E-Sign Co-Sign Detail Recorded Client Recorded Date Recorded By Document 07/23/21 16:08 MW [id number] 07/23/21 16:12 MW 07/23/21 16:08 Wound Center Nurse 2 #1 R 5th toe -Time 16:08 -Correct Patient Yes -Correct Side, Site, Position Yes -Correct Procedure Yes -Procedure Performed Yes -Type of Procedure Debridement -Clinical Debridement Subcutaneous -Tissue Removed Subcutaneous -Post Debridement (cm) - Length 1.6 -Post Debridement (cm) - Width 1.5 -Post Debridement (cm) - Depth 0.7 -Total Square (Post) (cm) 2.40 -Area of Debridement (cm) - Length 1.6 -Area of Debridement (cm) - Width 1.5 -Total Square (Area) (cm) 2.40 -Tunneling No -Undermining/Tunneling No -Circular Undermining No -Wound/Ulcer Outcome Not Healed -Ulcer Cleansing Rinsed/ Irrigated with Saline -Foul Odor after Cleansing No -Bioengineered Tissue No -Bleeding Controlled with Pressure -Offloading No -Treatment Response Procedure Tolerated Well -Debridement - Subq, 1st 20sq cm Yes Pain Scale: 0-10 Numeric Is Patient Pain Free? Yes - Nurse 3 - General Ulcer D/C NN Start: 07/23/21 15:37 Freq: Status: Active Protocol: Activity Type Activity Date Activity User E-Sign Co-Sign Detail Recorded Client Recorded Date Recorded By Document 07/23/21 16:25 DL [id number] 07/23/21 16:26 DL 07/23/21 16:25 Wound Care Nurse 3 #1 R 5th toe -Ulcer Cleansing Rinsed/ Irrigated with Saline -Foul Odor after Cleansing No -Other Dressing santyl -Primary Dressing Covered/Secured with Dry Gauze & Roll Gauze, Secured with Tape Treatment Response Procedure Tolerated Well Pain Scale: 0-10 Numeric Is Patient Pain Free? Yes WC - Visit Discharge Discharge Condition Stable Ambulatory Status Ambulatory Transportation Private Auto Assessment/Plan Assessment/Plan (1) Diabetic ulcer of right fifth toe: CODE(S): E11.621 - Type 2 diabetes mellitus with foot ulcer; L97.519 - Non-pressure chronic ulcer of other part of right foot with unspecified severity (2) Type 2 diabetes mellitus: CODE(S): E11.9 - Type 2 diabetes mellitus without complications QUALIFIERS: Diabetes mellitus skilled nursing insulin use: with truck terminal manager use Diabetes mellitus complication status: with skin complications Diabetes mellitus complication detail: with foot ulcer Qualified Code(s): E11.621 - Type 2 diabetes mellitus with foot ulcer; L97.509 - Non-pressure chronic ulcer of other part of unspecified foot with unspecified severity; Z79.4 - intermediate (current) use of insulin (3) Diabetic polyneuropathy: CODE(S): E11.42 - Type 2 diabetes mellitus with diabetic polyneuropathy QUALIFIERS: Diabetes mellitus type: type 2 Qualified Code(s): E11.42 - Type 2 diabetes mellitus with diabetic polyneuropathy (4) Hyperlipidemia: CODE(S): E78.5 - Hyperlipidemia, unspecified QUALIFIERS: Hyperlipidemia type: unspecified Qualified Code(s): E78.5 - Hyperlipidemia, unspecified (5) Tobacco use: CODE(S): Z72.0 - Tobacco use PLAN: Courtesy visit for Opal HARRINGTON- Debridement performed today in clinic as annotated above. Aquacel Ag applied. Given the duration of the wound and failure of the wound to respond to standard wound care, we will apply for advanced skin substitutes (Puraply, Nushield, Apligraf . At home wound-care instructions: Continue Santyl dressing changes daily, applying a nickel thick layer to the ulcer of the right fifth toe. Change dressing once daily or more frequently as needed due to contamination. Wash wounds daily with antibacterial soap and water, rinse and dry thoroughly before each dressing change. Do not soak/submerge the wound in a tub/pool of water. Compression: Double Tubigrip's applied for compression to right lower extremity. Patient was instructed to wear these daily. May remove at bedtime. Reapply compression prior to getting out of bed in the morning. Off-loading: The patient was instructed to avoid pressure and friction on the affected areas. He has shoes with a cut out along the lateral edge to avoid pressure on the right fifth toe. Avoid prolonged standing and/or dangling of legs. When seated, feet should be elevated at chest level. When driving, perform walking breaks at least every 30 minutes. Diet: Patient encouraged to increase protein intake while taking caution to avoid high carbohydrate and/or sugar intake. Tobacco: The risks of tobacco use and benefits of cessation were discussed with the patient today. The patient is encouraged to quit using tobacco. If cessation aids are desired, the patient should contact their primary care provider to discuss appropriate options. Labs/cultures/imaging: He has finished his course of Augmentin, but is still finishing his course of doxycycline. His labs from Dr. Israel on 06/25/2021 were reviewed, as follows: CBCD: WBC 12.2 (H), hemoglobin 12.9 (L), hematocrit 39.0 (L) CRP: 9.10 Wound culture: Positive for group B Streptococcus His right foot x-ray was also reviewed which demonstrated remote trauma and superimposed diabetic/Charcot foot. No noted soft tissue swelling or concern for osteomyelitis. His wound culture from 07/10/2021 was positive for 2+ corynebacterium minutissimum, suspected skin contaminant. No clinical concerns for infection today. Following completion of his course of doxycycline, it would be reasonable to repeat lab work to follow-up on slightly elevated white blood cell count and elevated CRP. An MRI may be considered based on wound progress. Follow-up: Return to clinic in 1 week for re-evaluation. Return sooner or report to the emergency room should symptoms worsen, or new symptoms arise. Note: [employer] speech recognition medical transcriptionist software was used to create portions of this document. Sound-alike and misspelled words, as well as other medical transcriptionist errors may be contained in the documentation.
[2021-07-28 14:03] VITALS: BP 128/75; PULSE 72; TEMP 36.3; BMI 34.5
--- NOTE | 2021-07-28 16:29 | PCM.WC.PN ---
History of Present Illness Date of Service: 07/28/21 Chief Complaint: Right fifth toe ulcer History of Wound: Nathan is a pleasant 66-year-old male who presents to the wound healing center today (07/10/2021) for an initial evaluation of a right fifth toe ulcer. He reports a past medical history significant for insulin-dependent type 2 diabetes mellitus, diabetic polyneuropathy of the bilateral feet, hyperlipidemia, and tobacco use (chewing tobacco; non-smoker). He states that approximately 2.5 weeks ago he was walking in a new pair of shoes; he later developed a blister of the right fifth toe. He was applying triple antibiotic ointment to the area for a few days before he was seen by his primary care provider. At the time of his evaluation with his primary care provider, he reports redness and swelling of the right foot that extended to the ankle. His primary care provider placed him on Augmentin 875 mg / 125 mg 3 times daily x20 days and doxycycline 100 mg twice daily x20 days. He was also given mupirocin ointment to use to the right fifth toe ulcer daily and instructed to wrap the toe with gauze. He has since had a significant reduction in the redness and swelling of his right foot. He was later seen by his application developer manager (Dr. Israel in [place], [place]). His right fifth toe ulcer was debrided. No changes were made to his wound care regimen. A culture was collected by his application developer manager, and no changes to antibiotics have been made. An x-ray and lab work were also completed. He reports that years ago (around 2009?2011) he was told that he had shattered several bones in his right foot. No surgery was required, and he states this was managed with wrapping/bracing the right foot. He states that his right foot typically swells more easily than his left, but only with prolonged activity/standing. The patient denies fever, chills, general malaise, or poor appetite. The patient has not had increased redness, swelling, or purulent/malodorous drainage from affected area. Progress of Wound: Doing well with santyl, no new concerns. Courtesy visit for Opal HARRINGTON Subjective Subjective Nathan Jaeger has been seen in the [facility] for a non-healing diabetic foot ulcer on the R fifth toe laterally since 07/10/21. The ulcer developed when he started walking with his in a pair of new tennis shows. The R shoe is a wide and the Left is an extra wide and the new show rubbed an opening on the R lateral small toe. He does not have diabetic shoes. He sees a application developer manager but, the current application developer manager is retiring and he would like to follow up with Dr. Chanell Oliver in the future. He has a hx of multiple fractures in the R foot and of development of a Charcot's foot with multiple bravo prominences. He had a XRAY of the R foot about a month ago and it did not show osteomyelitis per the patient. He tells me that the redness of the R foot and the swelling have improved since the antibiotics. He has been diabetic since 2007. Initially he had a good HGBA1C but, then he fell off his diet and he had a HGBA1C of 11. The diabetes was diagnosed when he was being seen for a wound on the L foot. He admits to having decreased sensation in the feet. He walks around his house in his stocking feet. He has had several foot ulcers in the past. Currently he has cut the shoe out laterally so there is no pressure on the fifth toe. He was on Augmentin and doxycycline and now he is only on Doxycycline. He had a culture of the wound done on 07/10/2021 that grew corynebacterium Minutissimum and this is usually a skin contaminant. Arterial studies of the bilateral lower extremity showed no significant arterial disease. Venous studies showed the right great saphenous vein appeared incompetent above the knee but competent below the knee. The left great saphenous vein was segmentally incompetent. He has been wearing double tubigrips on the RLE only. The wound is currently being dressed with Santyl and a moistened gauze on top. He denies fevers, chills and night sweats. He denies pain. Objective Data Objective Data Vital Signs: Vital Signs Temp Pulse BP 97.3 F L 72 128/75 H 07/28/21 14:03 07/28/21 14:03 07/28/21 14:03 Weight: 227 lb 7.189 oz Body Mass Index (BMI) 34.5 Charges/Coding Procedures Integumentary 111xxx-113xx: [id number] Odalys subq tissue 20 sq cm/< Physical Exam Extremity Extremity Narrative: He has several engorged superficial VV over the R medial malleolus. He has many superficial varicosities of the R leg. There is swelling of the R ankle. the DP pulses are 3/3 BL. There is good capillary refill. Skin Skin Narrative: The skin is very dry and flakey with cracking of the skin extending from the R tibial plateau to the toes. The plantar surface of the foot is hyperkeratotic and it looks as though he has recently experienced some desquamation. There is a bravo prominence on the medial side of the ankle just above the arch with a callous over it....no breakdown yet. He has callouses on multiple toes. He has a hammer toe and there is a reddened callous on the tip of the toe. The fifth toe is red and has increased warmth to touch. It is also swollen. On the lateral side of the fifth toe there is a non-healing diabetic ulcer. It is macerated and there is 90% slough present. There is no odor. Following debridement a culture of the wound was taken. there is undermining and tunnelling. The tunnel is 1 cm deep. and there is undermining at 3,9 and 12. Please see the dimensions recorded below. I could express thin DC from the wound prior to debridement. Debridement Note Debridement Note Wound debrided: diabetic foot ulcer r fifth toe Laterality: Right Type of Debridement: Excisional debridement Anesthesia Used: 4% Lidocaine Solution Depth: Down to and including healthy tissue, to muscle and - (the depth obtained with a probe is 1 cm and I can feel the probe tip hit the bone. ) Percentage of wound debrided: 100 Instrument Used: 3mm curette, #15 blade and Forceps Severity: Fat Layer Exposed Amount of bleeding with debridement: Mild Bleeding Controlled with: Pressure Patient tolerated procedure: Patient tolerated procedure well Debridement Free Text: I debrided the biofilm off and the slough. I also debrided the callous/dried DC around the rim. There is visible muscle but I can not see the bone....I can feel the bone with the probe used to determine the depth. Operative Diagnosis: non-healing diabetic foot ulcer of the lateral R fifth toe. Post-Debridement Measurements and Additional Note: Post-Debridement Measurements/Treatment WC - Nurse 1 - General Ulcer Assessment Start: 07/23/21 15:37 Freq: Status: Active Protocol: [email or web address] Activity Type Activity Date Activity User E-Sign Co-Sign Detail Recorded Client Recorded Date Recorded By Document 07/23/21 15:37 AK [id number] 07/23/21 15:44 AK Document 07/28/21 14:03 AK [id number] 07/28/21 14:05 AK 07/23/21 07/28/21 15:37 14:03 - Today's Visit Information Type of service Follow-up Visit Follow-up Visit (Physician/INDUSTRIAL PHARMACIST (Physician/INDUSTRIAL PHARMACIST ) ) Arrival Mode Ambulatory Ambulatory Patient Identification Verified (Name & No Yes ) Patient Requires Transmission-Based No Precautions Safety Precautions NA Height and Weight Body Mass Index (BMI) 34.5 34.5 BMI Classification Obese Obese Vital Signs Temperature (97.8 F-99.1 F) 96.9 F L 97.3 F L Temperature Source Temporal Temporal Pulse Rate (60-100) 75 72 Pulse Location Monitor Monitor Blood Pressure (90/60-120/80) 175/83 H 128/75 H Blood Pressure Mean (mm Hg) 113 92 Source Monitor Monitor Position Sitting Blood Pressure Location Right Arm History Since Last Visit- (Skip if this is Patient's initial visit) Have you changed medications since your No No last visit? Any new allergies or adverse reactions No No Had a fall/change in ADL's that may No No increase risk of falls Signs or symptoms of abuse and/or No No neglect since last visit Have you been in the hospital since your No No last visit? Has dressing in place as prescribed Yes Yes Has compression in place as prescribed Yes N/A Has offloadiing in place as prescribed N/A Experienced any changes in pain level or No management Left Footwear Regular Shoe Regular Shoe Right Footwear Regular Shoe Regular Shoe Pain Scale: 0-10 Numeric Is Patient Pain Free? Yes - Nurse 1 - General Ulcer Measurement Start: 07/23/21 15:37 Freq: Status: Active Protocol: Activity Type Activity Date Activity User E-Sign Co-Sign Detail Recorded Client Recorded Date Recorded By Document 07/23/21 15:37 AK [id number] 07/23/21 15:44 AK Document 07/28/21 14:03 AK [id number] 07/28/21 14:05 AK 07/23/21 07/28/21 15:37 14:03 Wound Center Nurse 1 #1 R 5th toe -Combined with other wound No -Current Size (cm) - Length 1 1.3 -Current Size (cm) - Width 1.3 1.2 -Current Size (cm) - Depth 0.2 0.1 -Total Square Cm 1.3 1.56 -Photo Taken No -Tunneling No -Undermining/Tunneling No -Circular Undermining No -Exudate Amt Large Small -Exudate Type Serosanguineous Serosanguineous -Wound Margin Distinct, Distinct, Outline Outline Attached Attached -Granulation Amt Medium (34-66%) Small (1-33%) -Granulation Quality N/A Red -Slough/Fibrin Yes -Necrosis Amt Large (67-100%) Medium (34-66%) -Necrotic Tissue Type Adherent Slough Adherent Slough -Structure Exposed N/A -Texture (Luzmaria-wound Skin Appearance) No Abnormality, Assessed, Assessed Scarring -Moisture (Luzmaria-wound Skin Appearance) Assessed, Assessed, Maceration Maceration -Color (Luzmaria-wound Skin Appearance) No Abnormality, No Abnormality, Assessed Assessed -Temperature (Luzmaria-wound Skin No Abnormality No Abnormality Appearance) (Pt Warm) (Pt Warm) -Tenderness on Palpation (Luzmaria-wound No No Skin Appearance) -Ulcer Cleansing Rinsed/ Rinsed/ Irrigated with Irrigated with Saline Saline -Foul Odor after Cleansing No -Anesthetic Used 5% Lidocaine 4% Lidocaine Gel Solution Right Calf (cm) 40 Right Foot (cm) 25.5 WC - Nurse 2 - General Ulcer CM Notes Start: 07/23/21 15:37 Freq: Status: Active Protocol: Activity Type Activity Date Activity User E-Sign Co-Sign Detail Recorded Client Recorded Date Recorded By Document 07/23/21 16:08 MW [id number] 07/23/21 16:12 MW Document 07/28/21 14:35 MW [id number] 07/28/21 14:58 MW Edit Result 07/28/21 14:35 MW (1) [id number] 07/28/21 14:59 MW (1) #1 R 5th toe - Tunneling No => Yes - Tunneling Position (O'clock) => 3 - Tunneling Distance (cm) => 0.4 - Undermining/Tunneling No => Yes - Undermining/Tunneling Starts (O'clock) => 9 - Undermining/Tunneling Ends (O'clock) => 12 - Maximum Distance (cm) => 0.5 07/23/21 07/28/21 16:08 14:35 Wound Center Nurse 2 #1 R 5th toe -Time 16:08 14:36 -Correct Patient Yes Yes -Correct Side, Site, Position Yes Yes -Correct Procedure Yes Yes -Procedure Performed Yes Yes -Type of Procedure Debridement Debridement -Clinical Debridement Subcutaneous Subcutaneous -Tissue Removed Subcutaneous Subcutaneous -Post Debridement (cm) - Length 1.6 1.2 -Post Debridement (cm) - Width 1.5 1.5 -Post Debridement (cm) - Depth 0.7 1.0 -Total Square (Post) (cm) 2.40 1.80 -Area of Debridement (cm) - Length 1.6 1.2 -Area of Debridement (cm) - Width 1.5 1.5 -Total Square (Area) (cm) 2.40 1.80 -Tunneling No Yes -Tunneling Position (O'clock) 3 -Tunneling Distance (cm) 0.4 -Undermining/Tunneling No Yes -Undermining/Tunneling Starts (O'clock 9 ) -Undermining/Tunneling Ends (O'clock) 12 -Maximum Distance (cm) 0.5 -Circular Undermining No No -Wound/Ulcer Outcome Not Healed Not Healed -Ulcer Cleansing Rinsed/ Rinsed/ Irrigated with Irrigated with Saline Saline -Foul Odor after Cleansing No No -Bioengineered Tissue No No -Bleeding Controlled with Pressure Pressure -Offloading No No -Treatment Response Procedure Procedure Tolerated Well Tolerated Well -Debridement - Subq, 1st 20sq cm Yes Yes Pain Scale: 0-10 Numeric Is Patient Pain Free? Yes Yes WC - Nurse 3 - General Ulcer D/C NN Start: 07/23/21 15:37 Freq: Status: Active Protocol: Activity Type Activity Date Activity User E-Sign Co-Sign Detail Recorded Client Recorded Date Recorded By Document 07/23/21 16:25 DL [id number] 07/23/21 16:26 DL Document 07/28/21 15:24 AK [id number] 07/28/21 15:25 AK 07/23/21 07/28/21 16:25 15:24 Wound Care Nurse 3 #1 R 5th toe -Ulcer Cleansing Rinsed/ Rinsed/ Irrigated with Irrigated with Saline Saline -Foul Odor after Cleansing No No -Negative Pressure Wound Therapy N/A -Primary Dressing Applied Aquacel AG 4x4 -Other Dressing santyl -Primary Dressing Covered/Secured with Dry Gauze & Dry Gauze, Roll Gauze, Secured with Secured with Tape Tape -Aquacel AG 4x4 1 Treatment Response Procedure Tolerated Well Pain Scale: 0-10 Numeric Is Patient Pain Free? Yes WC - Visit Discharge Discharge Condition Stable Stable Ambulatory Status Ambulatory Ambulatory Transportation Private Auto Private Auto Accompanied by Medication Reconcilliation completed & No provided to patient/care provider Clinical Summary of Care Provided Yes Assessment/Plan Assessment/Plan (1) Diabetic ulcer of right fifth toe: CODE(S): E11.621 - Type 2 diabetes mellitus with foot ulcer; L97.519 - Non-pressure chronic ulcer of other part of right foot with unspecified severity (2) Cellulitis: CODE(S): L03.90 - Cellulitis, unspecified (3) Diabetic polyneuropathy: CODE(S): E11.42 - Type 2 diabetes mellitus with diabetic polyneuropathy QUALIFIERS: Diabetes mellitus type: type 2 Qualified Code(s): E11.42 - Type 2 diabetes mellitus with diabetic polyneuropathy (4) Charcot foot due to diabetes mellitus: CODE(S): E11.610 - Type 2 diabetes mellitus with diabetic neuropathic arthropathy (5) Type 2 diabetes mellitus: CODE(S): E11.9 - Type 2 diabetes mellitus without complications QUALIFIERS: Diabetes mellitus buttermaker continuous churn insulin use: with buttermaker continuous churn use Diabetes mellitus complication status: with skin complications Diabetes mellitus complication detail: with foot ulcer Qualified Code(s): E11.621 - Type 2 diabetes mellitus with foot ulcer; L97.509 - Non-pressure chronic ulcer of other part of unspecified foot with unspecified severity; Z79.4 - assisted (current) use of insulin (6) Tobacco use: CODE(S): Z72.0 - Tobacco use (7) Varicose veins of both lower extremities: CODE(S): I83.93 - Asymptomatic varicose veins of bilateral lower extremities PLAN: 1. discontinue smoking as it delays wound healing and contributes to PVD 2. Moisturize the skin of the legs from the toes to the tibial plateau BID - both legs 3. wear a compression stocking on the RLE 15-20 cm of pressure 4. continue the Doxycycline he has been taking....he tells me he has another 15 days worth 5. culture, aerobic and anaerobic were sent and also a PCR for MRSA and SA 6. But a pair of hard soled slippers and wear them in the house rather than walking around in his socks. 7. He would benefit from diabetic shoes to decrease pressure on the bravo prominences. 8. re-XRAY the R foot. If this is negative but, the wound is still not healing then will need an MRI 9. CBC with diff, ESR, CRP, HGBA1C and BMP
[2021-07-28 17:41] LABS: M R Staph aureus DNA By PCR Negative (Negative); Probe Check PASS; Specimen Processing Control PASS; Staph aureus DNA By PCR NEGATIVE (Negative)
== END 2021-08-18 10:26 | disposition home or self-care (01) ==
LOC: WC 14:00
PROVIDERS: PCP Internal Medicine Infectious Disease; Referring Provider Nurse Practitioner Family; Visit Provider Nurse Practitioner Family
DX: E11.621 Type 2 diabetes mellitus with foot ulcer (principal); L97.512 Non-pressure chronic ulcer of other part of right foot with fat layer exposed; L03.031 Cellulitis of right toe; B95.1 Streptococcus, group B, as the cause of diseases classified elsewhere; S90.424S Blister (nonthermal), right lesser toe(s), sequela; X58.XXXS Exposure to other specified factors, sequela; I83.93 Asymptomatic varicose veins of bilateral lower extremities; R60.0 Localized edema; E11.610 Type 2 diabetes mellitus with diabetic neuropathic arthropathy; E11.42 Type 2 diabetes mellitus with diabetic polyneuropathy; E78.5 Hyperlipidemia, unspecified; F17.220 Nicotine dependence, chewing tobacco, uncomplicated; E66.9 Obesity, unspecified; Z68.34 Body mass index [BMI] 34.0-34.9, adult; Z79.4 Long term (current) use of insulin; Z79.899 Other long term (current) drug therapy
CPT/HCPCS: 11042; 87070; 87075; 87077; 87186; 87205; 87640

== ENCOUNTER → 2021-07-29 13:21 | Outpatient (CLI) | payer MEDICARE, SELFPAY ==
--- NOTE | 2021-07-29 13:39 | RAD_ITS ---
STUDY: X-RAY - RIGHT FOOT CLINICAL: Male, 66 years old. NON HEALING ULCER TECHNIQUE: 3 radiographic view(s) of the foot. COMPARISON: None. FINDINGS: There is demineralization of the rear and midfoot bones. There is erosion/destruction of the cuneiform bones. The navicular is eroded and fracture. There is articulation of the second metatarsal with the navicular, and articulation of the third metatarsal with the cuboid and navicular bones. Narrowing and sclerosis of the visualized subtalar, talonavicular, and calcaneocuboid articulations. There is demineralization of the metatarsi. Normal metatarsophalangeal joint of the great toe. Normal tibial and fibular sesamoid bones. Normal interphalangeal joint of the great toe. Normal phalanges of the great toe. Normal second through fifth metatarsophalangeal joints. Normal interphalangeal joints and phalanges of the lesser toes. The soft tissue structures are unremarkable. RAD/Foot min 3 Views IMPRESSION: Extensive mid foot destruction detailed above may be secondary to osteomyelitis in the setting of nonhealing ulcer. Electronically Signed: Juan Doyle MD at 1:47 EDT Tel , Service support ,
[2021-07-29 13:44] LABS: Erythrocyte Sedimentation Rate 4 mm/hr (0-20)
[2021-07-29 13:46] LABS: Absolute Lymphocyte Count 2.56 X10^3/uL (0.83-4.51); Absolute Neutrophil Count 4.6 X10^3/uL (2.0-7.7); Basophil# 0.03 X10^3/uL; Basophil% 0.4 % (0-1); Eosinophil# 0.13 X10^3/uL; Eosinophils% 1.6 % (0-5); Hematocrit 43.4 % (40-54); Hemoglobin 14.1 g/dL (13.0-16.5); Lymphocyte # 2.56 X10^3/ul (0.83-4.51); Lymphocyte % 32.1 % (19-41); Mean Corp Hgb Conc 32.5 g/dL (32-36); Mean Corpuscular Hgb 28.1 pg (27.0-32.0); Mean Corpuscular Volume 86.6 fL (80-94); Mean Platelet Vol. 8.9 fl (6.2-12.0); Monocyte# 0.61 X10^3/uL; Monocyte% 7.7 % (0-10); NRBC Flagged by Analyzer 0 % (0-5); Neutrophil # 4.61 X10^3/uL (2.7-7.7); Neutrophil % 57.8 % (47-70); Platelet Count 249 K/mm3 (150-450); RBC Distribution Width CV 12.8 % (11.6-14.6); RBC Distribution Width SD 40.2 fl (35.1-43.9); Red Blood Count 5.01 M/mm3 (4.6-6.2)
[2021-07-29 13:59] LABS: Hemoglobin A1c 8.3 % (3.8-5.6)
[2021-07-29 14:00] LABS: Anion Gap 3 (5-15); BUN 16 mg/dL (7-18); BUN/Creat Ratio 15.5 RATIO (10-20); CRP < 2.90 mg/L (0.0-3.0); Calcium,Total 9.2 mg/dL (8.5-10.1); Chloride 106 mmol/L (98-107); Creatinine, Serum 1.03 mg/dL (0.70-1.30); EST Glomerular Filtration Rate 77 mL/min (>60); Est Glom Filt Rate - Afr Amer 93 mL/min (>60); Glucose 140 mg/dL (74-106); Sodium Level 140 mmol/L (136-145)
== END ==
PROVIDERS: PCP Internal Medicine Infectious Disease; Visit Provider Nurse Practitioner Family
DX: E11.621 Type 2 diabetes mellitus with foot ulcer (principal); L03.115 Cellulitis of right lower limb; L97.516 Non-pressure chronic ulcer of other part of right foot with bone involvement without evidence of necrosis
CPT/HCPCS: 36415; 73630; 80048; 83036; 85025; 85652; 86140